=== PATIENT | female | born 1960 | race Caucasian/White ===

== ENCOUNTER 2025-04-29 10:15 | Emergency (ER) | payer MEDICARE, OTHER, SELFPAY ==
[2025-04-29] VITALS (10 sets, daily range): BP systolic 136–162; BP diastolic 72–81; PULSE 111–119; RESP 14–21; TEMP 37.1; O2SAT 96–97; BMI 21.9
--- NOTE | 2025-04-29 10:19 | ED_ITS ---
HPI - Nausea/Vomiting/Diarrhea General Chief complaint: Altered Mental Status Stated complaint: Nausea/vomiting Time Seen by Provider: 04/29/25 10:26 History of Present Illness HPI Narrative: Patient is 64-year-old female presenting from home via EMS for evaluation of nausea and vomiting. According to the medics they were called yesterday for nausea and vomiting however patient refused, at time of evaluation patient is somnolent but arousable. She states that she is just tired not complaining of any other symptoms at this time. Patient is able to answer all questions follow commands NIH of 0 no focal deficits however patient keeps her eyes closed during the full exam. She denies any other symptoms such as headache visual disturbances chest pain shortness breath fever chills or any other GI/ symptoms at this time. Related Data Allergies Allergy/AdvReac Type Severity Reaction Status Date / Time metoclopramide (From Reglan) AdvReac Intermediate Verified 04/29/25 10:33 Review of Systems Review of Systems Narrative: General: Denies fever, chills, weight loss HEENT: Denies headache, eye drainage, eye irritation, head trauma, sore throat, voice change Cardiovascular: Denies any chest pain, palpitations, tachycardia Respiratory: Denies any shortness of breath, cough, wheeze, stridor GI/: Positive nausea and vomiting Denies any abdominal pain, diarrhea, bright red blood per rectum, melanotic stools, urinary frequency, urinary retention, dysuria, hematuria MSK: Denies any joint pain, muscle pains, swelling Skin: Denies any rashes, lesions, discoloration Neuro: Denies any headache, lightheadedness, dizziness, fainting, weakness Psych: Denies SI/HI Patient History Social History Smoking Status: Never smoker Exam Narrative Exam Narrative: General: Cooperative, well-developed, not in acute distress HEENT: Normocephalic, atraumatic, PERRLA, normal sclera, eyelids normal Neck: Active full range of motion, atraumatic Chest: Normal to inspection, negative crepitus, no overlying erythema ecchymosis Respiratory: Normal respiratory effort, not in acute respiratory distress, clear to auscultation bilaterally negative cough, wheeze, tachypnea, rhonchi, rales Cardiology: Regular rate rhythm negative gallop, murmur, rubs GI/: Mild tenderness to palpation diffusely, soft, non rigid, normal to inspection, exam deferred MSK: Full active range of motion in all 4 extremities, atraumatic, no tenderness to palpation of any bony prominences Skin: No rashes or lesions noted Neuro: Patient is somnolent but arousable, NIH of 0 Alert awake oriented x3, moves all 4 extremities spontaneously, cranial nerves intact, able to answer all questions appropriately follows commands appropriately Psych: Cooperative, negative suicidal or homicidal ideations Initial Vital Signs Initial Vital Signs: Vital Signs Pulse Rate 118 H 04/29/25 10:19 Blood Pressure 162/76 H 04/29/25 10:19 Pulse Oximetry 97 04/29/25 10:19 Course Orders Ordered: ED Orders 04/29/25 10:22 XR chest 1V Stat EKG-12 Lead Stat 04/29/25 10:23 CT chest abd pel w con Stat CT head/brain wo con Stat Urinalysis and Microscopic Stat 04/29/25 10:50 Complete Blood Count AUTO DIFF Stat Comprehensive Metabolic Panel Stat Lipase Stat MAG [Magnesium] Stat NT-proBNP (BNP-Adult 18+) Stat Troponin & CK Cardiac Panel Stat 04/29/25 10:55 Respiratory Panel (Film Array) Stat 04/29/25 11:15 Ammonia (NH3) Stat 04/29/25 11:30 Blood Culture Stat 04/29/25 11:34 Lactate (Lactic Acid) Stat PTT Partial Thromboplastin Shiv Stat Prothrombin Time INR Stat Vancomycin HCl/Dextrose (Vancomycin) 1,500 mg in 300 mls @ 200 mls/hr IV NOW ONE Stop: 04/29/25 15:29 Last Admin: 04/29/25 13:51 Dose: 200 mls/hr Documented By: ALLEN Discontinued Medications Dexamethasone (Dexamethasone 10 Mg/Ml Vial) 10 mg IV NOW ONE Stop: 04/29/25 12:32 Last Admin: 04/29/25 13:46 Dose: 10 mg Documented By: ALLEN Sodium Chloride (Normal Saline 0.9%) 1,000 mls @ 1,000 mls/hr IV BOLUS ONE Stop: 04/29/25 12:19 Last Infusion: 04/29/25 12:12 Dose: Infused Documented By: Admin: 04/29/25 11:20 Dose: 1,000 mls/hr Documented By: ALLEN Piperacillin Sod/Tazobactam (Sod 4.5 gm/ Sodium Chloride) 100 mls @ 200 mls/hr IV STAT ONE Stop: 04/29/25 12:02 Last Infusion: 04/29/25 13:37 Dose: Infused Documented By: Admin: 04/29/25 12:12 Dose: 200 mls/hr Documented By: ALLEN Levetiracetam 1,000 mg/ Sodium (Chloride) 110 mls @ 440 mls/hr IV NOW ONE Stop: 04/29/25 12:32 Last Infusion: 04/29/25 13:52 Dose: Infused Documented By: Admin: 04/29/25 13:39 Dose: 440 mls/hr Documented By: ALLEN Ondansetron HCl (Ondansetron 4 Mg/2 Ml Inj) 4 mg IV NOW ONE Stop: 04/29/25 14:04 Last Admin: 04/29/25 14:04 Dose: 4 mg Documented By: SUZANNE Vital Signs Vital signs: Vital Signs - 8 hr 04/29/25 10:19 04/29/25 10:19 04/29/25 10:30 Temperature Pulse Rate 118 H 119 H Respiratory Rate 17 Blood Pressure 162/76 H Pulse Oximetry 97 97 Oxygen Delivery Method 04/29/25 10:30 04/29/25 10:32 04/29/25 11:00 Temperature 98.7 F Pulse Rate 119 H 115 H Respiratory Rate 20 21 Blood Pressure 148/81 H 136/80 Pulse Oximetry 96 97 Oxygen Delivery Method Room Air 04/29/25 11:00 04/29/25 11:30 04/29/25 11:30 Temperature Pulse Rate 111 H Respiratory Rate 16 Blood Pressure 156/73 H 145/72 H Pulse Oximetry 96 Oxygen Delivery Method MDM - Nausea/Vomiting/Diarrhea Differential Diagnosis Differential diagnosis: Likely food poisoning, gastroenteritis, drug-induced nausea and vomiting, dehydration and other (CVA, urinary tract infection, electrolyte abnormality, pneumonia) Lab Data 04/29/25 10:50 04/29/25 10:50 Labs: Lab Results 04/29/25 04/29/25 04/29/25 Range/Units 10:50 10:54 10:55 WBC 20.5 H (4.5-11.0) X10^3/uL RBC 4.42 (4.0-5.2) X10^6/uL Hgb 14.3 (12.0-16.0) g/dL Hct 42.5 (36-46) % MCV 96.2 (80-100) fL MCH 32.4 (26-34) PG MCHC 33.7 (30-36) % RDW 12.8 (11.6-14.8) % Plt Count 195 (150-400) X10^3/uL Neut % (Auto) Not Reportable Lymph % (Auto) Not Reportable [place] % (Auto) Not Reportable Eos % (Auto) Not Reportable Baso % (Auto) Not Reportable Lymph # (Auto) Not Reportable [place] # (Auto) Not Reportable Baso # (Auto) Not Reportable Total Counted 100 Seg Neutrophils % 88.0 H (38-70) % Band Neutrophils % 3.0 (3-7) % Lymphocytes % (Manual) 4.0 L (25-45) % Monocytes % (Manual) 5.0 (2-11) % Neutrophils # (Manual) 06546 H (1078-7566) /uL Platelet Estimate Adequate on smear RBC Morphology Normal morphology PT (9.4-12.5) SECONDS INR (0.9-1.3) APTT (25.1-36.5) SECONDS Sodium 141 (137-145) mmol/L Potassium 4.2 (3.4-5.1) mmol/L Chloride 104 (98-107) mmol/L Carbon Dioxide 23 (22-32) mmol/L BUN 24 H (7-17) mg/dL Creatinine 1.28 H (0.52-1.04) mg/dL Estimated GFR 46 L (>60) mL/min BUN/Creatinine Ratio 18.8 (6-22) Glucose 185 H (70-99) mg/dL POC Whole Bld Glucose 177 H (70-99) mg/dL Lactate (0.7-2.1) mmol/L Calcium 9.4 (8.4-10.2) mg/dL Magnesium 1.9 (1.6-2.3) mg/dL Total Bilirubin 0.5 (0.2-1.3) mg/dL AST 55 H (14-36) IU/L ALT 46 H (<35) IU/L Alkaline Phosphatase 119 (38-126) U/L Ammonia (9-30) umol/L Total Creatine Kinase 238 H (30-135) U/L Troponin I 0.014 (0.01-0.034) ng/mL NT-Pro-B Natriuret Pep 564 H (<125) pg/mL Total Protein 8.5 H (6.3-8.2) g/dL Albumin 4.7 (3.5-5.0) g/dL Globulin 3.8 (1.7-4.1) g/dL Albumin/Globulin Ratio 1.2 (1.0-2.8) Lipase 230 (23-300) U/L Chlamy pneumoniae PCR Not detected (Not Detect) Adenovirus (PCR) Not detected (Not Detect) B. pertussis DNA (PCR) Not detected (Not Detect) B.parapertussis DNA PCR Not detected (Not Detecte) Coronavirus OC43 (PCR) Not detected (Not Detect) Coronavirus HKU1 (PCR) Not detected (Not Detect) Coronavirus 229E (PCR) Not detected (Not Detect) SARS-CoV-2 (PCR) Not detected (Not Detecte) Coronavirus NL63 (PCR) Not detected (Not Detect) Human Metapneumovir PCR Not detected (Not Detect) Influenza Type A (PCR) Not detected (Not Detect) Influenza Type B (PCR) Not detected (Not Detect) M. pneumoniae (PCR) Not detected (Not Detect) Parainfluenza 1 (PCR) Not detected (Not Detect) Parainfluenza 2 (PCR) Not detected (Not Detect) Parainfluenza 3 (PCR) Not detected (Not Detect) Parainfluenza 4 (PCR) Not detected (Not Detect) RSV (PCR) Not detected (Not Detect) Entero/Rhino (PCR) Detected H (Not Detect) 04/29/25 04/29/25 Range/Units 11:15 11:34 WBC (4.5-11.0) X10^3/uL RBC (4.0-5.2) X10^6/uL Hgb (12.0-16.0) g/dL Hct (36-46) % MCV (80-100) fL MCH (26-34) PG MCHC (30-36) % RDW (11.6-14.8) % Plt Count (150-400) X10^3/uL Neut % (Auto) Lymph % (Auto) [place] % (Auto) Eos % (Auto) Baso % (Auto) Lymph # (Auto) [place] # (Auto) Baso # (Auto) Total Counted Seg Neutrophils % (38-70) % Band Neutrophils % (3-7) % Lymphocytes % (Manual) (25-45) % Monocytes % (Manual) (2-11) % Neutrophils # (Manual) (2004-3009) /uL Platelet Estimate RBC Morphology PT 11.6 (9.4-12.5) SECONDS INR 1.0 (0.9-1.3) APTT 29 (25.1-36.5) SECONDS Sodium (137-145) mmol/L Potassium (3.4-5.1) mmol/L Chloride (98-107) mmol/L Carbon Dioxide (22-32) mmol/L BUN (7-17) mg/dL Creatinine (0.52-1.04) mg/dL Estimated GFR (>60) mL/min BUN/Creatinine Ratio (6-22) Glucose (70-99) mg/dL POC Whole Bld Glucose (70-99) mg/dL Lactate 4.1 H* (0.7-2.1) mmol/L Calcium (8.4-10.2) mg/dL Magnesium (1.6-2.3) mg/dL Total Bilirubin (0.2-1.3) mg/dL AST (14-36) IU/L ALT (<35) IU/L Alkaline Phosphatase (38-126) U/L Ammonia < 9 L (9-30) umol/L Total Creatine Kinase (30-135) U/L Troponin I (0.01-0.034) ng/mL NT-Pro-B Natriuret Pep (<125) pg/mL Total Protein (6.3-8.2) g/dL Albumin (3.5-5.0) g/dL Globulin (1.7-4.1) g/dL Albumin/Globulin Ratio (1.0-2.8) Lipase (23-300) U/L Chlamy pneumoniae PCR (Not Detect) Adenovirus (PCR) (Not Detect) B. pertussis DNA (PCR) (Not Detect) B.parapertussis DNA PCR (Not Detecte) Coronavirus OC43 (PCR) (Not Detect) Coronavirus HKU1 (PCR) (Not Detect) Coronavirus 229E (PCR) (Not Detect) SARS-CoV-2 (PCR) (Not Detecte) Coronavirus NL63 (PCR) (Not Detect) Human Metapneumovir PCR (Not Detect) Influenza Type A (PCR) (Not Detect) Influenza Type B (PCR) (Not Detect) M. pneumoniae (PCR) (Not Detect) Parainfluenza 1 (PCR) (Not Detect) Parainfluenza 2 (PCR) (Not Detect) Parainfluenza 3 (PCR) (Not Detect) Parainfluenza 4 (PCR) (Not Detect) RSV (PCR) (Not Detect) Entero/Rhino (PCR) (Not Detect) Imaging Data CT chest abdomen pelvis: Radiologist's Impression: [address] [address] [address] Scan Report Signed Patient: Izabel Corea MR#: [id number] : 1960 Acct:[id number] Age/Sex: 64 / F Date of Service: 04/29/25 Loc: ED Accession Number: [id number] Procedure: CT chest abd pel w con Ordering Provider: Kumar Pederson D.O. PROCEDURE: CT CHEST ABD PEL W CON INDICATIONS: AMS, abd pain , n/v TECHNIQUE: After the administration of intravenous contrast, 5 mm thick sections acquired from the lung apices to the symphysis. 5 mm coronal and sagittal reformats were performed, with additional 7 mm MIP reformats through the lungs. For radiation dose reduction, the following was used: automated exposure control, adjustment of mA and/or kV according to patient size. COMPARISON: None. FINDINGS: Image quality: Excellent. CHEST: Lower Neck: No enlarged lymph nodes. Thyroid: Subcentimeter thyroid nodule does not require dedicated imaging follow-up. Axillae: No enlarged lymph nodes. Chest Wall: Unremarkable. Lungs and Pleura: No pneumothorax or pleural effusions. Bibasilar dependent atelectasis. No consolidation or suspicious nodules. Heart: Heart size is normal. No pericardial effusion. Thoracic Vessels: The aorta and pulmonary arteries demonstrate normal size. Mediastinum and Kerrie: No enlarged lymph nodes. Esophagus: No wall thickening. No hiatal hernia. ABDOMEN: Liver: No solid mass. Liver is diffusely hypoattenuating, compatible with infiltration. Multiple hypoattenuating lesions in the liver are most likely cysts. Gallbladder: No radiopaque gallstones or wall thickening. Biliary ducts: No biliary dilation. Pancreas: No ductal dilation. Spleen: Size is within normal limits. Adrenal Glands: No adrenal nodules. Kidneys and Ureters: No hydronephrosis. No solid mass. No complex renal cystic lesion which requires follow up. Stomach and Bowel: Suspected mild bowel wall thickening in the distal stomach. Colon is nondistended. Normal appendix. Short segment narrowing in the rectum likely related to peristalsis. Mild colonic diverticulosis. Peritoneum: No abnormal intraperitoneal fluid. No free air. Ventral Wall: No significant ventral hernia. Abdominal Nodes: No retroperitoneal or mesenteric adenopathy by size criteria. Vessels: Aorta and inferior vena cava are normal in size. PELVIS: Pelvic Organs: Probable uterine fibroids. Bladder: No bladder wall thickening, accounting for underdistention. Pelvic Nodes: No enlarged lymph nodes. Miscellaneous: No inguinal hernias are seen. Bones: No aggressive osseous abnormality. IMPRESSION: 1. Mild bowel wall thickening in the distal stomach may indicate gastritis. Additional areas of bowel wall thickening versus underdistention in the colon and a nonspecific colitis is not excluded. 2. Diffuse hepatic steatosis. CT scan - head: Radiologist's Impression: [place] [address] CT Scan Report Signed Patient: Izabel Corea MR#: [id number] : 1960 Acct:[id number] Age/Sex: 64 / F Date of Service: 04/29/25 Loc: ED Accession Number: [id number] Procedure: CT head/brain wo con Ordering Provider: Kumar Pederson D.O. PROCEDURE: CT HEAD/BRAIN WO CON INDICATIONS: AMS TECHNIQUE: Noncontrast 4.5 mm thick angled axial sections acquired from the foramen magnum to the vertex, with coronal and sagittal reformats. For radiation dose reduction, the following was used: automated exposure control, adjustment of mA and/or kV according to patient size. COMPARISON: None. FINDINGS: Image quality: Diagnostic. CSF spaces: See description brain below. There is mass effect on the frontal horn of the right lateral ventricle with midline shift measuring 5 mm. There is mild mass effect on the 4th ventricle. Multiple parenchymal hemorrhages and 3 focal subdural hematomas are described below. There is a small amount of subarachnoid blood. Brain: Large right frontal parenchymal hemorrhage, measuring 4.9 x 4.6 x 4.6 cm. Reference coronal series 13 of series 4 and axial image 15 of series 2. Associated subdural hematoma on the right, in the temporal region, measuring 6.5 mm. Reference axial image 19. There is also a very small anterior left frontal subdural hematoma focally measuring 6 mm. Reference axial image 16. There is a small subdural hematoma anterior to the left temporal tip which measures 7 mm. There is inferior right cerebellar parenchymal hematoma measuring approximately 2.0 x 3.6 x 3.0 cm. Reference coronal image 31 and axial image 6. There is significant mass effect on the frontal horn of the right lateral ventricle. Midline shift measures 5 mm. Reference axial image 18 of series 2. There is mild mass effect on the 4th ventricle. There is cerebral volume loss, with resultant ventricular and sulcal prominence. There are periventricular and deep white matter chronic small vessel ischemic changes. There is intracranial internal carotid artery atherosclerosis. Skull and face: There is a right occipital and suboccipital fracture. Fracture extends to the right base of skull. Sinuses: High density present in the right sphenoid sinus may be hemorrhagic. IMPRESSION: 1. There is a right occipital and suboccipital skull fracture with fracture extending to the right skull base. 2. There is a large right frontal parenchymal hematoma with mass effect on the frontal horn of the right lateral ventricle and 5 mm of midline shift. 3. There is a right temporal subdural measuring 6.5 mm in thickness. 4. There is a very focal small left frontal subdural hematoma. 5. There is some subarachnoid hemorrhage. 6. There is a relatively large inferior right cerebellar parenchymal hemorrhage. 7. There is a small subdural hematoma anterior to the left temporal tip. Chest x-ray: Radiologist's Impression: [address] [address] XRay Report Signed Patient: Izabel Corea MR#: [id number] : 1960 Acct:[id number] Age/Sex: 64 / F Date of Service: 04/29/25 Loc: ED Accession Number: [id number] Procedure: XR chest 1V Ordering Provider: Kumar Pederson D.O. PROCEDURE: XR CHEST 1V INDICATIONS: altered mental status TECHNIQUE: One view of the chest was acquired. COMPARISON: None. FINDINGS: Surgical changes and devices: None. Lungs and pleura: Lungs are clear. No pleural effusions or pneumothorax. Mediastinum: Mediastinal contours appear normal. Heart size is normal. Bones and chest wall: No suspicious bony lesions. Overlying soft tissues appear unremarkable. IMPRESSION: No acute cardiopulmonary abnormality is seen. ECG Data Interpretation: EKG interpreted ED physician sinus tachycardia 120 beats per minute QTC 452, SC QRS interval within normal limits, nonspecific ST changes no STEMI MDM Narrative Medical decision making narrative: Patient is a 64-year-old female who presents for altered mental status nausea and vomiting from home for the past 6-12 hours. At time of evaluation patient is answering questions but somnolent but arousable. She is able to move all 4 extremities spontaneously, she only states that she feels weak. Additional ROS HPI limited secondary to patient's mental status change. Patient with a leukocytosis of 20.5, patient also with tachycardia, unknown source however we will give broad-spectrum antibiotics at this time 1222: Patient's is at bedside, he provides additional information, he states that yesterday at 5:00 p.m. was the last known normal. He states that he does live with grandchildren and he states that he heard that she may have fallen in the bathroom, he verifies patient not on any medications no blood thinners. On repeat evaluation patient is somnolent but arousable still without any focal deficits he states that he is okay with transferring patient to outside hospital if needed. 1230: Received call by radiologist who states patient has occipital bone fracture along with frontal hemorrhage, several subdural hemorrhages with midline shift, Silverio Ballard ordered for this. 1256: Discussed case with [facility] transfer center, accepting Dr. Cox will fly patient to [facility] ED. 1405: Patient was re-evaluated with transport at bedside, the signs stable safe for transfer to outside hospital Critical Care Time Critical Care Time Critical Care Time: Yes Total Critical Care Time: 45 Attestation: Authorized and Performed by: Kumar Pederson DO Total critical care time: Approximately [45] minutes Due to a high probability of clinically significant, life threatening deterioration, the patient required my highest level of preparedness to intervene emergently and I personally spent this critical care time directly and personally managing the patient. This critical care time included obtaining a history; examining the patient; pulse oximetry; ordering and review of studies; arranging urgent treatment with development of a management plan; evaluation of patient's response to treatment; frequent reassessment; and, discussions with other providers. This critical care time was performed to assess and manage the high probability of imminent, life-threatening deterioration that could result in multi-organ failure. It was exclusive of separately billable procedures and treating other patients and teaching time. Please see MDM section and the rest of the note for further information on patient assessment and treatment. Discharge Plan Departure Patient Disposition: [facility] Clinical Impression: Rhinovirus infection, Enterovirus infection, Intracranial hemorrhage, Fracture of occipital bone of skull with loss of consciousness, Subdural hemorrhage, Subarachnoid hemorrhage, Acute cerebellar hemorrhage, Midline shift of brain Referrals: Vin Marcum DO [Primary Care Provider, Family Practice]
--- NOTE | 2025-04-29 10:22 | DI.RAD.S_ITS ---
PROCEDURE: XR CHEST 1V INDICATIONS: altered mental status TECHNIQUE: One view of the chest was acquired. COMPARISON: None. FINDINGS: Surgical changes and devices: None. Lungs and pleura: Lungs are clear. No pleural effusions or pneumothorax. Mediastinum: Mediastinal contours appear normal. Heart size is normal. Bones and chest wall: No suspicious bony lesions. Overlying soft tissues appear unremarkable. IMPRESSION: No acute cardiopulmonary abnormality is seen. Approved by: Hari Castellanos M.D. on 04/29/2025 at 12:01
--- NOTE | 2025-04-29 10:23 | EKG_ITS ---
[address] [address] Test Date: 2025-04-29 Pat Name: Izabel Corea Department: Room: Gender: Female Funeral Planning Counselor: LAURITA : 1960 Requested By: Order Number: [id number] Reading MD: Malcolm Warren Measurements Intervals [place] Rate: 120 P: 18 WA: 158 QRS: 189 QRSD: 88 T: 6 QT: 320 QTc: 452 Interpretive Statements Sinus tachycardia Right superior axis deviation Possible Right ventricular hypertrophy Electronically Signed On 04-29-2025 18:30:13 PDT by Malcolm Warren
--- NOTE | 2025-04-29 10:23 | DI.CT.S_ITS ---
PROCEDURE: CT CHEST ABD PEL W CON INDICATIONS: AMS, abd pain , n/v TECHNIQUE: After the administration of intravenous contrast, 5 mm thick sections acquired from the lung apices to the symphysis. 5 mm coronal and sagittal reformats were performed, with additional 7 mm MIP reformats through the lungs. For radiation dose reduction, the following was used: automated exposure control, adjustment of mA and/or kV according to patient size. COMPARISON: None. FINDINGS: Image quality: Excellent. CHEST: Lower Neck: No enlarged lymph nodes. Thyroid: Subcentimeter thyroid nodule does not require dedicated imaging follow-up. Axillae: No enlarged lymph nodes. Chest Wall: Unremarkable. Lungs and Pleura: No pneumothorax or pleural effusions. Bibasilar dependent atelectasis. No consolidation or suspicious nodules. Heart: Heart size is normal. No pericardial effusion. Thoracic Vessels: The aorta and pulmonary arteries demonstrate normal size. Mediastinum and Kerrie: No enlarged lymph nodes. Esophagus: No wall thickening. No hiatal hernia. ABDOMEN: Liver: No solid mass. Liver is diffusely hypoattenuating, compatible with infiltration. Multiple hypoattenuating lesions in the liver are most likely cysts. Gallbladder: No radiopaque gallstones or wall thickening. Biliary ducts: No biliary dilation. Pancreas: No ductal dilation. Spleen: Size is within normal limits. Adrenal Glands: No adrenal nodules. Kidneys and Ureters: No hydronephrosis. No solid mass. No complex renal cystic lesion which requires follow up. Stomach and Bowel: Suspected mild bowel wall thickening in the distal stomach. Colon is nondistended. Normal appendix. Short segment narrowing in the rectum likely related to peristalsis. Mild colonic diverticulosis. Peritoneum: No abnormal intraperitoneal fluid. No free air. Ventral Wall: No significant ventral hernia. Abdominal Nodes: No retroperitoneal or mesenteric adenopathy by size criteria. Vessels: Aorta and inferior vena cava are normal in size. PELVIS: Pelvic Organs: Probable uterine fibroids. Bladder: No bladder wall thickening, accounting for underdistention. Pelvic Nodes: No enlarged lymph nodes. Miscellaneous: No inguinal hernias are seen. Bones: No aggressive osseous abnormality. IMPRESSION: 1. Mild bowel wall thickening in the distal stomach may indicate gastritis. Additional areas of bowel wall thickening versus underdistention in the colon and a nonspecific colitis is not excluded. 2. Diffuse hepatic steatosis. Approved by: Hari Castellanos M.D. on 04/29/2025 at 13:18
--- NOTE | 2025-04-29 10:23 | DI.CT.S_ITS ---
PROCEDURE: CT HEAD/BRAIN WO CON INDICATIONS: AMS TECHNIQUE: Noncontrast 4.5 mm thick angled axial sections acquired from the foramen magnum to the vertex, with coronal and sagittal reformats. For radiation dose reduction, the following was used: automated exposure control, adjustment of mA and/or kV according to patient size. COMPARISON: None. FINDINGS: Image quality: Diagnostic. CSF spaces: See description brain below. There is mass effect on the frontal horn of the right lateral ventricle with midline shift measuring 5 mm. There is mild mass effect on the 4th ventricle. Multiple parenchymal hemorrhages and 3 focal subdural hematomas are described below. There is a small amount of subarachnoid blood. Brain: Large right frontal parenchymal hemorrhage, measuring 4.9 x 4.6 x 4.6 cm. Reference coronal series 13 of series 4 and axial image 15 of series 2. Associated subdural hematoma on the right, in the temporal region, measuring 6.5 mm. Reference axial image 19. There is also a very small anterior left frontal subdural hematoma focally measuring 6 mm. Reference axial image 16. There is a small subdural hematoma anterior to the left temporal tip which measures 7 mm. There is inferior right cerebellar parenchymal hematoma measuring approximately 2.0 x 3.6 x 3.0 cm. Reference coronal image 31 and axial image 6. There is significant mass effect on the frontal horn of the right lateral ventricle. Midline shift measures 5 mm. Reference axial image 18 of series 2. There is mild mass effect on the 4th ventricle. There is cerebral volume loss, with resultant ventricular and sulcal prominence. There are periventricular and deep white matter chronic small vessel ischemic changes. There is intracranial internal carotid artery atherosclerosis. Skull and face: There is a right occipital and suboccipital fracture. Fracture extends to the right base of skull. Sinuses: High density present in the right sphenoid sinus may be hemorrhagic. IMPRESSION: 1. There is a right occipital and suboccipital skull fracture with fracture extending to the right skull base. 2. There is a large right frontal parenchymal hematoma with mass effect on the frontal horn of the right lateral ventricle and 5 mm of midline shift. 3. There is a right temporal subdural measuring 6.5 mm in thickness. 4. There is a very focal small left frontal subdural hematoma. 5. There is some subarachnoid hemorrhage. 6. There is a relatively large inferior right cerebellar parenchymal hemorrhage. 7. There is a small subdural hematoma anterior to the left temporal tip. Comment: Findings were discussed with Dr. Allen on 04/29/2025 at 1229 hours Dictated by: Titi Killian M.D. on 04/29/2025 at 12:25 Approved by: Titi Killian M.D. on 04/29/2025 at 12:34
[2025-04-29 10:59] LABS: Hematocrit 42.5 % (36-46); Hemoglobin 14.3 g/dL (12.0-16.0); Mean Corpuscular HGB Conc 33.7 % (30-36); Mean Corpuscular Hemoglobin 32.4 PG (26-34); Mean Corpuscular Volume 96.2 fL (80-100); Platelet Count 195 X10^3/uL (150-400)
[2025-04-29 11:00] LABS: Add Manual Diff / Slide Review YES
[2025-04-29 11:09] LABS: Alanine Aminotransferase 46 IU/L (<35); Albumin 4.7 g/dL (3.5-5.0); Albumin Globulin Ratio 1.2 (1.0-2.8); Alkaline Phosphatase 119 U/L (38-126); Blood Urea Nitrogen 24 mg/dL (7-17); Calcium 9.4 mg/dL (8.4-10.2); Carbon Dioxide 23 mmol/L (22-32); Chloride 104 mmol/L (98-107); Creatine Kinase 238 U/L (30-135); Estimated Glomerular Filt Rate 46 mL/min (>60); Globulin 3.8 g/dL (1.7-4.1); Glucose 185 mg/dL (70-99); HEMOLYSIS < 15 (0-50); Lipase 230 U/L (23-300); Potassium 4.2 mmol/L (3.4-5.1); Sodium 141 mmol/L (137-145); Total Protein 8.5 g/dL (6.3-8.2)
[2025-04-29 11:12] LABS: Magnesium 1.9 mg/dL (1.6-2.3)
[2025-04-29 11:18] LABS: Band Neutrophils Percent 3.0 % (3-7); Lymphocytes Percent Manual 4.0 % (25-45); Monocytes Percent Manual 5.0 % (2-11); Neutrophils Absolute Manual 18655 /uL (3000-5900); RBC Morphology Normal Morphology; Segmented Neutrophils Percent 88.0 % (38-70); Total Cells Counted 100
[2025-04-29] MEDS: SODIUM CHLORIDE 0.9% 1,000 ML 1000 ML IV (11:20)
[2025-04-29 11:22] LABS: NT-proBNP (BNP-Adult 18+) 564 pg/mL (<125); Troponin I 0.014 ng/mL (0.01-0.034)
[2025-04-29 11:52] LABS: Coronavirus NL 63 Not Detected (Not Detect); SARS- CoV-2 Not Detected (Not Detecte)
[2025-04-29 11:53] LABS: Ammonia (NH3) < 9 umol/L (9-30)
[2025-04-29 11:53] LABS: INR 1.0 (0.9-1.3); Prothrombin Time 11.6 SECONDS (9.4-12.5)
[2025-04-29 11:55] LABS: PTT Partial Thromboplastin Tim 29 SECONDS (25.1-36.5)
[2025-04-29 12:00] LABS: Lactate (Lactic Acid) 4.1 mmol/L (0.7-2.1)
[2025-04-29] MEDS: PIPERACILLIN/TAZO 4.5 GM in SODIUM CHLORIDE 0.9% 100 ML IV (12:12)
[2025-04-29 13:18] LABS: Reflexed Lactate in 2 Hours Y
[2025-04-29] MEDS: DEXAMETHASONE 10 MG/ML VIAL IV (13:46)
[2025-04-29] MEDS: VANCOMYCIN 1,500 MG/300 ML PIGGYBACK 200 MG IV (13:51)
[2025-04-29] MEDS: ONDANSETRON 4 MG/2 ML INJ IV (14:04)
[2025-04-29 14:13] LABS: Lactate 2HR (Lactic Acid Rflx) 2.0 mmol/L (0.7-2.1)
--- NOTE | 2025-04-29 17:53 | PC.NURSE ---
Vanc running at time pt left w/ Airlift to [facility]
== END 2025-04-29 14:05 | disposition short-term general hospital (02) ==
PROVIDERS: Emergency Provider Student in an Organized Health Care Education/Training Program; PCP Family Medicine
DX: I62.9 Nontraumatic intracranial hemorrhage, unspecified (principal); R90.89 Other abnormal findings on diagnostic imaging of central nervous system; I61.4 Nontraumatic intracerebral hemorrhage in cerebellum; I60.9 Nontraumatic subarachnoid hemorrhage, unspecified; S02.119A Unspecified fracture of occiput, initial encounter for closed fracture; I62.00 Nontraumatic subdural hemorrhage, unspecified; B34.8 Other viral infections of unspecified site; B34.1 Enterovirus infection, unspecified; R10.9 Unspecified abdominal pain
CPT/HCPCS: 36415; 70450; 71045; 71260; 74177; 80053; 82140; 82550; 82962; 83605; 83690; 83735; 83880; 84484; 85007; 85025; 85610; 85730; 87040; 87633; 93005; 96361; 96365; 96375; 99284; 99291; J1100; J1953; J2405; J2543